=== PATIENT | male | born 1965 | race Caucasian/White ===

== ENCOUNTER → 2017-10-31 | Outpatient (CLI) | payer BC ==
[~2017-10-31] MED LIST: ASP81CT PO; ASPI1TAB71 PO; CYCL10TA9 PO; HYDR-756 PO; LISI10TA PO; NAPR550T PO; PNT40TEC PO
--- NOTE | 2017-10-31 11:34 | Diagnostic Imaging Report ---
INDICATION: Cough and wheezing PA and lateral chest obtained at 1146 AM and compared with 01/06/2011. 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 There is no acute consolidation or pneumothorax or pleural fluid. Findings are unchanged compared to the previous study. 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 No acute consolidation or pneumothorax or pleural fluid. No sign of wesley edema. Dictated by: Dictated on workstation # [id number]
== END ==
LOC: RAD 11:06
PROVIDERS: ATTEND Nurse Practitioner Family
DX: R05 Cough (principal); R06.2 Wheezing; Z95.2 Presence of prosthetic heart valve; Z98.890 Other specified postprocedural states
CPT/HCPCS: 71046